=== PATIENT | female | born 1960 ===

== ENCOUNTER 2025-05-06 08:22 | Outpatient (CLI) | payer OTHER | END 2025-05-06 08:23 | disposition home or self-care (01) | LOC: MAMO-SONO 08:22 | PROVIDERS: ATTEND Internal Medicine | DX: N64.4 Mastodynia (principal); R92.8 Other abnormal and inconclusive findings on diagnostic imaging of breast; Z12.31 Encounter for screening mammogram for malignant neoplasm of breast ==

== ENCOUNTER 2025-06-11 22:56 | Emergency (ER) | payer OTHER ==
[~2025-06-11] VITALS: Ht 170.2 cm; Wt 103.9 kg
[2025-06-12] MEDS ORDERED: ENALAPRILAT DIHYDRATE 1.25 MG/ML VIAL IV STA (00:18)
[2025-06-12] MEDS ORDERED: 0.9 % SODIUM CHLORIDE 500 ML IV STA (00:19)
[2025-06-12] MEDS ORDERED: ENALAPRILAT DIHYDRATE 1.25 MG/ML VIAL IV ONE (00:50)
[2025-06-12 01:28] LABS: BASO % 0.4 % (0.1-1.2); EOS # 0.01 (0.04-0.54); EOS % 0.1 % (0.7-7.0); LYMPH # 1.40 (1.18-3.74); LYMPH % 10.2 % (19.3-53.1); MEAN PLATELET VOLUME 8.90 fl (9.4-12.4); MONO # 0.88 (0.24-0.82); MONO % 6.4 % (4.7-12.5); NEUT # 11.36 (1.56-6.13); NEUT % 82.4 % (34.0-71.1); RED CELL DISTRIBUTION WIDTH 14.5 % (11.6-14.4)
[2025-06-12 02:08] LABS: BUN CREA RATIO 14.0 (7.0-25.0); CREATININE SERUM 1.16 mg/dL (0.55-1.02); GFR 46.88; GLUCOSE FASTING 125.0 mg/dL (65-100); OSMOLALITY SERUM 275.0 MOSM/KG (275-295); TSH 0.413 uIU/mL (0.358-3.74)
[2025-06-12 02:54] LABS: COVID-19 AG NEGATIVE (NEGATIVE)
[2025-06-12] MEDS ORDERED: ENOXAPARIN SODIUM 60 MG/0.6 ML SYRINGE SUBCUTANEO STA (03:45)
[2025-06-12] MEDS ORDERED: CEFTRIAXONE SODIUM 1,000 MG VIAL IV STA (03:45)
[2025-06-12] MEDS ORDERED: ENOXAPARIN SODIUM 60 MG/0.6 ML SYRINGE SUBCUTANEO ONE (05:36)
[2025-06-12] MEDS ORDERED: CEFTRIAXONE SODIUM 1,000 MG VIAL ONE (05:36)
[2025-06-12 08:04] LABS: URINE APPEARANCE Clear; URINE BILIRRUBIN Negative (NEGATIVE); URINE BLOOD Trace; URINE COLOR Dark Yellow; URINE GLUCOSE Negative (NEGATIVE); URINE KETONE Negative (NEGATIVE); URINE LEUKOCYTE Negative; URINE NITRATE Negative; URINE PROTEIN 30 (NEGATIVE); URINE UROBILINOGEN 1.0 E.U./dl
[2025-06-12 08:05] LABS: URINE BACTERIA 40.7 uL (0.0-1933); URINE EPITHELIAL CELLS 12.6 uL (0.0-38.8); URINE RBC 30.5 uL (0.0-20.8); URINE WBC 5.5 uL (0.0-23.2)
[2025-06-12 08:36] LABS: URINE CAST 0.43 uL (0.0-1.40)
[2025-06-12 11:14] LABS: BASO % 0.4 % (0.1-1.2); EOS # 0.02 (0.04-0.54); EOS % 0.2 % (0.7-7.0); LYMPH # 1.16 (1.18-3.74); LYMPH % 9.5 % (19.3-53.1); MEAN PLATELET VOLUME 9.20 fl (9.4-12.4); MONO # 0.83 (0.24-0.82); MONO % 6.8 % (4.7-12.5); NEUT # 10.17 (1.56-6.13); NEUT % 82.8 % (34.0-71.1); RED CELL DISTRIBUTION WIDTH 14.6 % (11.6-14.4)
[2025-06-12 11:49] LABS: ALT/SGPT 22.0 U/L (12-78); AST/SGOT 53.0 U/L (15-37); BILIRUBIN TOTAL 0.64 mg/dL (0.3-1.2); BUN CREA RATIO 12.0 (7.0-25.0); CREATININE SERUM 1.1 mg/dL (0.55-1.02); GFR 49.85; GLOBULINA 4.7 G/DL (2.4-3.5); GLUCOSE FASTING 104.0 mg/dL (65-100); OSMOLALITY SERUM 274.0 MOSM/KG (275-295)
== END 2025-06-12 15:29 | disposition left against medical advice (07) ==
LOC: ER 22:56
PROVIDERS: General Practice
DX: R53.1 Weakness (principal); E11.9 Type 2 diabetes mellitus without complications; I10 Essential (primary) hypertension; Z20.822 Contact with and (suspected) exposure to COVID-19
CPT/HCPCS: 36415; 51702; 70450; 71045; 72131; 93005; 96365; 96366; 99284; J0696; J3490; J7042